=== PATIENT | female | born 1985 | race Hispanic/Latino ===

== ENCOUNTER 2020-05-19 06:24 | Day surgery (SDC) | payer MEDICAID ==
[2020-05-12 10:02] LABS: BASOPHILS % (AUTO) 0.3 % (0.0-5.0); EOSINOPHILS % (AUTO) 1.4 % (0.0-8.0); HEMATOCRIT 42.2 % (36-48); LYMPHOCYTES % (AUTO) 34.6 % (21.0-51.0); MEAN CORPUSCULAR HEMOGLOBIN 29.5 pg (27.0-33.0); MEAN CORPUSCULAR HGB CONC 31.8 g/dL (32.0-36.0); MEAN CORPUSCULAR VOLUME 92.7 fL (79-99); MONOCYTES % (AUTO) 5.1 % (3.0-13.0); NEUTROPHILS % (AUTO) 58.3 % (40.0-77.0); PLATELET COUNT (AUTO) 326 K/uL (130-400); RED BLOOD CELL COUNT(AUTO) 4.55 MIL/uL (4.00-5.50); RED CELL DISTRIBUTION WIDTH 12.7 % (11.0-15.5); WHITE BLOOD COUNT (AUTO) 7.2 K/uL (4.8-10.8)
[2020-05-18 11:04] VITALS: BP 121/74
[2020-05-19] VITALS (16 sets, daily range): BP systolic 97–130; BP diastolic 45–82
[~2020-05-19] VITALS: Ht 149.9 cm; Wt 64.4 kg
[~2020-05-19 06:24] MED LIST: ACET-66 PO; FERR-82 PO; PNV1TABL17 PO
[2020-05-19] MEDS: CALDOLOR 800MG+NS 250ML 250 ML IV SCH ×2 (07:00→08:50)
[2020-05-19] MEDS: CEFAZOLIN SODIUM 1 GM VIAL IVP SCH ×2 (07:00→08:45)
[2020-05-19] MEDS ORDERED: LACTATED RINGERS 1000ML 1,000 ML IV ONE (07:39)
[2020-05-19] MEDS ORDERED: MIDAZOLAM HCL 1 MG/ML 2ML VIAL ONE (08:30)
[2020-05-19] MEDS ORDERED: GLYCOPYRROLATE 1 MG/5 ML SYRINGE ONE (08:30)
[2020-05-19] MEDS ORDERED: NEOSTIGMINE 5MG/5ML SYR IV ONE (08:30)
[2020-05-19] MEDS ORDERED: LIDOCAINE PF 2% 5ML ABBOJECT ONE (08:30)
[2020-05-19] MEDS ORDERED: DEXAMETHASONE SOD PHOSPHATE 10MG/ML 1ML VIAL ONE (08:30)
[2020-05-19] MEDS ORDERED: ONDANSETRON HCL 4 MG/2 ML VIAL ONE (08:30)
[2020-05-19] MEDS ORDERED: BUPIVACAINE/PF 0.25% 30ML VIAL IJ ONE (08:30)
[2020-05-19] MEDS ORDERED: PROPOFOL 10 MG/ML 20ML VIAL IV ONE (08:31)
[2020-05-19] MEDS ORDERED: ROCURONIUM 10MG/1ML SYR 10 MG/ML ML ONE (08:31)
[2020-05-19] MEDS ORDERED: FENTANYL CITRATE PF 50 MCG/1 ML 2ML VIAL ONE (08:32)
== END 2020-05-19 11:05 | disposition home or self-care (01) ==
LOC: DAH 06:24
PROVIDERS: ATTEND Obstetrics & Gynecology
DX: Z30.2 Encounter for sterilization (principal); Z20.828 Contact with and (suspected) exposure to other viral communicable diseases
CPT/HCPCS: 36415 ×2; 58670; 84703; 85025; 86850 ×2; 86900 ×2; 86901 ×2; A4215; A4221; A4222; A4223; A4351; A4606; A4657; A4663; A6260; C1769 ×2; C9803; G0168; J0690; J1100; J1741; J2001; J2250; J2405; J2704; J2710; J3010; J3490 ×2; J7030; J7120; U0003